=== PATIENT | female | born 1945 | race Caucasian/White ===

== ENCOUNTER 2021-06-03 07:39 | Outpatient (CLI) | payer MEDICARE, BC ==
[2021-06-03 16:00] LABS: THYROID STIMULATING HORMONE 1.91 uIU/mL (0.34-5.60)
[2021-06-03 16:01] LABS: FREE T3 2.54 pg/mL (2.5-3.9)
[2021-06-03 16:02] LABS: FREE T4 (FREE THYROXINE) 0.9 ng/dL (0.58-1.64)
== END 2021-06-03 07:40 | disposition home or self-care (01) ==
LOC: LAB.S 07:39
PROVIDERS: ATTEND Internal Medicine Endocrinology, Diabetes & Metabolism
DX: E03.9 Hypothyroidism, unspecified (principal); R79.89 Other specified abnormal findings of blood chemistry
CPT/HCPCS: 36415; 82306; 84439; 84443; 84481

== ENCOUNTER 2022-04-09 10:44 | Outpatient (CLI) | payer MEDICARE, BC ==
[2022-04-09 14:48] LABS: THYROID STIMULATING HORMONE 0.91 uIU/mL (0.34-5.60)
[2022-04-09 14:49] LABS: FREE T3 2.97 pg/mL (2.5-3.9)
[2022-04-09 14:50] LABS: FREE T4 (FREE THYROXINE) 1.08 ng/dL (0.58-1.64)
== END 2022-04-09 10:45 | disposition home or self-care (01) ==
LOC: LAB.S 10:44
PROVIDERS: ATTEND Internal Medicine Endocrinology, Diabetes & Metabolism
DX: E03.9 Hypothyroidism, unspecified (principal)
CPT/HCPCS: 36415; 84439; 84443; 84481

== ENCOUNTER 2022-05-28 15:31 | Outpatient (CLI) | payer MEDICARE, BC ==
--- NOTE | 2022-05-28 15:45 | XRAY Report ---
PROCEDURE: Chest 2 View X-Ray INDICATIONS: ACUTE COUGH TECHNIQUE: 2 views of the chest were acquired. COMPARISON: None FINDINGS: Surgical changes and devices: None. Lungs and pleura: No pleural effusions or pneumothorax. Lungs are clear. Mediastinum: Mediastinal contours are normal. Heart size is normal. Bones and chest wall: No suspicious bony abnormalities. Mild scoliosis. Soft tissues appear unremar kable. IMPRESSION: No acute cardiopulmonary disease. Reviewed by: Naye Alfredo MD on 05/28/2022 3:43 PM PST Approved by: Naye Alfredo MD on 05/28/2022 3:43 PM PST Station ID: [id number]
== END 2022-05-28 15:32 | disposition home or self-care (01) ==
LOC: DI.S 15:31
PROVIDERS: ATTEND Registered Nurse
DX: R05.1 Acute cough (principal)

== ENCOUNTER 2022-11-21 08:00 | Outpatient (CLI) | payer MEDICARE, BC ==
--- NOTE | 2022-11-21 13:54 | XRAY Report ---
PROCEDURE: Shoulder 3 View BILAT INDICATIONS: DERANGEMENT OF SHOULDER TECHNIQUE: 3 views of the shoulder were acquired. COMPARISON: None. FINDINGS: Bones: No fractures or dislocations. Moderate bilateral shoulder DJD. No suspicious bony lesions. Visualized ribs appear intact. Soft tissues: No suspicious soft tissue calcifications. IMPRESSION: Moderate bilateral shoulder DJD. Reviewed by: Luis Eduardo Dye MD on 11/21/2022 1:53 PM PDT Approved by: Luis Eduardo Dye MD on 11/21/2022 1:53 PM PDT Station ID: [id number]
--- NOTE | 2022-11-21 13:58 | XRAY Report ---
PROCEDURE: Cervical Spine Comp w/Flex/Ext INDICATIONS: DERANGEMENT OF SHOULDER TECHNIQUE: 7 views of the cervical spine were acquired. COMPARISON: None. FINDINGS: Bones: No fractures or dislocations to the T1 level. No suspicious bony lesions. Decreased range of motion particularly with flexion, with preserved normal bony alignment. There is 0.3 cm anterolisthe sis of C5 on C6. Exaggerated cervical spine lordosis at the superior aspect. Prominent vertebral body osteophytes. Disc space height loss at C6-C7. There is a bony neural foraminal narrowing. Soft tissues: Prevertebral soft tissues are normal in thickness. IMPRESSION: Severe cervical spine degenerative change. Consider MRI for further evaluation. Reviewed by: Luis Eduardo Dye MD on 11/21/2022 1:56 PM PDT Approved by: Luis Eduardo Dye MD on 11/21/2022 1:56 PM PDT Station ID: [id number]
== END 2022-11-21 23:59 | disposition home or self-care (01) ==
LOC: DI.S 08:00
PROVIDERS: ATTEND Internal Medicine
DX: M19.011 Primary osteoarthritis, right shoulder (principal); M19.012 Primary osteoarthritis, left shoulder; M47.812 Spondylosis without myelopathy or radiculopathy, cervical region

== ENCOUNTER 2023-09-11 07:03 | Outpatient (CLI) | payer MEDICARE, BC ==
[2023-09-11 14:52] LABS: BASOPHILS # (AUTO) 0.1 10^3/uL (0.0-0.1); BASOPHILS % (AUTO) 0.8 %; EOSINOPHILS # (AUTO) 0.3 10^3/uL (0.0-0.7); EOSINOPHILS % (AUTO) 5.3 %; HGB - HEMOGLOBIN 12.9 g/dL (12.0-16.0); LYMPHOCYTES # (AUTO) 2.2 10^3/uL (1.5-3.5); MEAN CORPUSCULAR HEMOGLOBIN 29.7 pg (27.0-31.0); MEAN CORPUSCULAR HGB CONC 31.5 g/dL (32.0-36.0); MEAN CORPUSCULAR VOLUME 94.3 fL (81.0-99.0); MEAN PLATELET VOLUME 10.6 fL (7.9-10.8); MONOCYTES # (AUTO) 0.6 10^3/uL (0.0-1.0); MONOCYTES % (AUTO) 9.6 %; NEUTROPHILS # (AUTO) 2.9 10^3/uL (1.5-6.6); PLT - PLATELET COUNT 200 10^3/uL (130-450); RED BLOOD COUNT 4.35 10^6/uL (4.20-5.40); RED CELL DISTRIBUTION WIDTH 12.8 % (12.0-15.0); WHITE BLOOD COUNT 6.1 x10^3/uL (4.8-10.8)
[2023-09-11 16:03] LABS: ALBUMIN/GLOBULIN RATIO 2.2 (1.0-2.2); ALKALINE PHOSPHATASE 59 IU/L (42-121); ALT ALANINE AMINOTRANSFERASE 15 IU/L (10-60); AST ASPARTATE AMINOTRANSFERASE 20 IU/L (10-42); BILIRUBIN,TOTAL 0.5 mg/dL (0.2-1.0); BUN - BLOOD UREA NITROGEN 25 mg/dL (6-20); CALCIUM 9.7 mg/dL (8.5-10.3); CARBON DIOXIDE - CO2 30 mmol/L (21-32); CHLORIDE 107 mmol/L (101-111); CHOLESTEROL 183 mg/dL; CREATININE 0.6 mg/dL (0.6-1.3); GFR - MDRD 97 (>89); GLUCOSE 80 mg/dL (74-104); HDL CHOLESTEROL 61 mg/dL; LDL CHOLESTEROL,CALCULATED 105 mg/dL; LDL/HDL RATIO 1.7 (<4.4); SODIUM 143 mmol/L (135-145); TOTAL PROTEIN 5.8 g/dL (6.4-8.9); TRIGLYCERIDES 86 mg/dL (48-352); VLDL CHOLESTEROL 17 mg/dL
== END 2023-09-11 07:04 | disposition home or self-care (01) ==
LOC: LAB.S 07:03
PROVIDERS: ATTEND Internal Medicine
DX: Z13.220 Encounter for screening for lipoid disorders (principal); Z79.899 Other long term (current) drug therapy
CPT/HCPCS: 36415; 80053; 80061; 83721; 84443; 85025